=== PATIENT | male | born 1950 | race Caucasian/White ===

== ENCOUNTER → 2018-05-28 | Day surgery (SDC) | payer OTHER ==
[~2018-05-28] VITALS: Ht 162.5 cm; Wt 87.1 kg
[~2018-05-28] MED LIST: ADVAIR 250/501 EA INH; ADVAIR 250/501 EA PO; ALBUTEROL2.5 MG/0.5 INH; FENOFIBRATE145 M1 PO; FLUOXETINE40 MG PO; FOLIC ACID0.8 M1 PO; LEVAQUIN LEVA-750 MG PO; OXYGEN NAS; PRAVASTATIN SOD40 MG PO; SPIRIVA -- 3018 MCG INH; SPIRIVA18 MCG IH; VENTOLIN 02.5 MG/3 M INH
--- NOTE | ~2018-05-28 | O ---
[place], [place] OPERATIVE NOTE NAME: ALANA EVANS UNIT #: [id number] ROOM: DOCTOR: BENNETT CLEMENTE MD BIRTHDATE: [birth year] DOS: 05/28/2018 HISTORY OF PRESENT ILLNESS: A 67-year-old patient's blood on the stool. ALLERGIES: No known medication. FAMILY HISTORY: Noncontributory. PAST SURGICAL HISTORY: Lung biopsy, O2 dependency. PAST MEDICAL HISTORY: Hypertension, COPD, hyperlipidemia. SOCIAL HISTORY: Nonsmoker any longer. Nonalcohol consumer. PROCEDURE: Today's procedure part of investigation is colonoscopy and panendoscopy. PREMEDICATION: Propofol. SCOPE: Olympus forward-viewing gastroscope Q10 video. REPORT: After putting the patient in left lateral position and application of lubricant to the scope, the scope was introduced; thereafter on direct visualization, advanced through the length of esophagus without difficulty. Gastric pouch was entered. Gastritis was noticed. Antral biopsy was obtained. Duodenal bulb, second and third part within normal limits. The patient extubated and tolerated the procedure well. IMPRESSION: Gastritis. PLAN AND DISCUSSION: We are going to proceed with colonoscopic evaluation. Thank you very much again. GASTROENDOSCOPIC REPORT The patient has presented with blood on the stool undergoing investigation. PROCEDURE: Today's procedure part of investigation is colonoscopy plus biopsy and polypectomies. PREMEDICATION: Propofol. SCOPE: Olympus forward-viewing colonoscope 10L video. REPORT: After putting the patient in left lateral position and application of lubricant to the scope, the scope was introduced. Thereafter, under direct visualization, advanced through the length of colon without difficulty. Base of the cecum explored. Sessile polypoid lesion with a snare was polypectomized. Another polypoid lesion, which was sessile. Biopsy was polypectomized removed. [place], [place] OPERATIVE NOTE NAME: ALANA EVANS UNIT #: [id number] ROOM: DOCTOR: BENNETT CLEMENTE MD BIRTHDATE: [birth year] Two other polypoid lesions sessile with piecemeal polypectomy from hepatic flexure, ascending area was removed. The patient extubated, tolerated procedure well. Diverticulosis as well noticed scatteredly. PLAN AND DISCUSSION: The patient is guaiac positive mostly from superficial mucosal tear. Otherwise, no active pathology identified except for polyps and diverticulosis. Recommending follow up on H and H. If there is any drop, we have to reassess. Thank you very much indeed. BENNETT CLEMENTE MD CM:OPRECORD:OPERATIVE NOTE [id number] BENNETT CLEMENTE MD 05/28/18 1704 interface
[2018-05-28 12:40] VITALS: BP 114/66
[2018-05-28 14:29] VITALS: BP 103/48
[2018-05-28 14:44] VITALS: BP 98/40
[2018-05-28 14:59] VITALS: BP 102/71
== END | disposition home or self-care (01) ==
LOC: SDC 05-26 10:15
DX: D12.0 Benign neoplasm of cecum (principal); D12.2 Benign neoplasm of ascending colon; K57.30 Diverticulosis of large intestine without perforation or abscess without bleeding; K29.50 Unspecified chronic gastritis without bleeding; I10 Essential (primary) hypertension; E78.5 Hyperlipidemia, unspecified; J44.9 Chronic obstructive pulmonary disease, unspecified; Z87.891 Personal history of nicotine dependence; Z72.89 Other problems related to lifestyle; Z79.899 Other long term (current) drug therapy

== ENCOUNTER 2019-03-03 11:50 | Emergency (ER) | payer OTHER ==
[~2019-03-03] VITALS: Wt 70.8 kg
--- NOTE | ~2019-03-03 | EKG ---
[place], [place] ELECTROCARDIOGRAM REPORT NAME: ALANA EVANS UNIT #: [id number] ROOM: DOCTOR: EPIPHANY DRAFT REPORT BIRTHDATE: [birth year] [facility] Test Date: 2019-03-03 Test Time: 13:17:30 Pat Name: ALANA EVANS Department: Room: Gender: Javascript Web Developer: : 1950 Requested By: DALE CERNA DNP Order Number: [id number] Reading MD: Carlo Delacruz MD Measurements Intervals [place] Rate: 86 P: 70 AK: 160 QRS: 60 QRSD: 100 T: 43 QT: 369 QTc: 442 Interpretive Statements Sinus rhythm Electronically Signed On 03-06-2019 7:43:21 PDT by Carlo Delacruz MD CM:EKGRPT:ELECTROCARDIOGRAM REPORT [id number] DALE CERNA DNP [facility] DRAFT REPORT DALE CERNA DNP
[2019-03-03] MEDS ORDERED: WIXELA 250-501 EACH INH (12:38)
[2019-03-03 13:17] LABS: BASO % 0.3 % (0.0-1.0); EOS # 0.1 10*3/uL (0.0-0.4); EOS % 2.1 % (1.0-4.0); HEMATOCRIT 38.2 % (42.0-52.0); HEMOGLOBIN 12.3 g/dl (14.0-18.0); LYMPH # 0.7 10*3/uL (1.3-4.4); LYMPH % 11.9 % (27.0-41.0); MEAN CELL VOLUME 87.6 fl (80.0-94.0); MEAN CORPUSCULAR HGB 28.2 pg (27.0-31.0); MEAN CORPUSCULAR HGB CONC 32.2 g/dl (33.0-37.0); MEAN PLATELET VOLUME 9.1 fl (9.6-12.3); MONO # 0.5 10*3/uL (0.1-1.0); MONO % 8.2 % (3.0-9.0); NEUT # 4.7 10*3/uL (2.3-7.9); NEUT % 77.2 % (47.0-73.0); PLATELET COUNT AUTOMATED 238 10*3/uL (130-400); RED BLOOD COUNT 4.36 10*6/uL (4.50-5.90); WHITE BLOOD COUNT 6.1 10*3/uL (4.8-10.8)
[2019-03-03 13:32] LABS: ACT PARTIAL THROMBO TIME 29.6 SECONDS (20.0-32.1); INTERNATIONAL NORM RATIO 0.9 (2.0-3.5)
[2019-03-03 13:34] LABS: ALBUMIN 3.5 gm/dl (3.1-4.5); ALKALINE PHOSPHATASE 76 U/L (45-117); BUN 11 mg/dl (7-24); CHLORIDE 102 mmol/L (98-107); CREATININE 0.68 mg/dL (0.70-1.30); LIPASE 50 U/L (73-393); POTASSIUM 3.7 mmol/L (3.5-5.1); SGOT/AST 23 IU/L (3-35); SGPT/ALT 16 U/L (12-78); SODIUM 136 mmol/L (136-145); TOTAL PROTEIN 7.9 gm/dL (6.4-8.2)
[2019-03-03 13:41] LABS: ETHYL ALCOHOL < 3.0 mg/dl (<3); TROPONIN I < 0.015 ng/ml (<0.045)
[2019-03-03 15:15] LABS: BILIRUBIN 1+ (NEGATIVE); BLOOD NEGATIVE (NEGATIVE); CLARITY CLEAR (CLEAR); COLOR YELLOW (YELLOW); GLUCOSE NEGATIVE (NEGATIVE); KETONE NEGATIVE (NEGATIVE); LEUKO ESTERASE NEGATIVE (NEGATIVE); NITRITE NEGATIVE (NEGATIVE); UROBILINOGEN 0.2 E.U./dl (0.2-1.0)
[2019-03-03 15:26] LABS: EPITHELIAL CELLS 0-2; MUCOUS 2+
[2019-03-03 15:28] LABS: URINE BENZODIAZEPINES < 200 (200ng/ml); URINE CANNABINOIDS (THC) < 50 (50ng/ml); URINE COCAINE < 300 (300ng/ml); URINE METHADONE < 300 (300ng/ml); URINE OPIATES < 300 (300ng/ml)
[2019-03-03 15:32] LABS: URINE AMPHETAMINES < 1000 (1000ng/ml); URINE BARBITURATES < 200 (200ng/ml); URINE PHENCYCLIDINE < 25 (25ng/ml)
[2019-03-03 15:56] LABS: ACETAMINOPHEN (TYLENOL) < 10.0 ug/ml (10-30)
== END 2019-03-03 17:00 | disposition short-term general hospital (02) ==
LOC: ED 11:50
PROVIDERS: Nurse Practitioner Family
DX: G93.89 Other specified disorders of brain (principal); R41.82 Altered mental status, unspecified; R19.7 Diarrhea, unspecified; H53.8 Other visual disturbances; J44.9 Chronic obstructive pulmonary disease, unspecified; Z79.899 Other long term (current) drug therapy

== ENCOUNTER → 2019-04-18 | Outpatient (CLI) | payer OTHER ==
[~2019-04-18] MED LIST changes: +D3-20002000 UNIT PO; +LORATADINE10 M3 PO; +MULTIVITAMINS1 EAC5 PO; +VALTREX1000 MG PO; +WIXELA 250-501 EACH INH
[2019-04-18 12:01] LABS: HEMOGLOBIN 9.6 g/dl (14.0-18.0); MEAN CORPUSCULAR HGB 28.2 pg (27.0-31.0); MEAN PLATELET VOLUME 8.7 fl (9.6-12.3); NUCLEATED RED BLOOD CELL 0.5 % (0.0-0.0); PLATELET COUNT AUTOMATED 101 10*3/uL (130-400); RED BLOOD COUNT 3.41 10*6/uL (4.50-5.90); RED CELL DISTRI WIDTH 14.2 % (0-14.5); WHITE BLOOD COUNT 4.3 10*3/uL (4.8-10.8)
[2019-04-18 12:22] LABS: ALBUMIN 2.2 gm/dl (3.1-4.5); ALKALINE PHOSPHATASE 71 U/L (45-117); BUN 9 mg/dl (7-24); CHLORIDE 103 mmol/L (98-107); CREATININE 0.82 mg/dL (0.70-1.30); POTASSIUM 3.9 mmol/L (3.5-5.1); SGOT/AST 30 IU/L (3-35); SGPT/ALT 30 U/L (12-78); SODIUM 137 mmol/L (136-145)
[2019-04-18 14:01] LABS: TOTAL CELLS COUNTED 100 #CELLS
[2019-04-18 14:05] LABS: BLASTS 2 % (0-0)
[2019-04-18 14:06] LABS: PLATELET SUFFICIENCY LOW (NORMAL)
[2019-04-19 07:28] LABS: TOXIC GRANULATION MODERATE
== END | disposition home or self-care (01) ==
LOC: LAB 11:36
PROVIDERS: Internal Medicine Hematology & Oncology
DX: C34.00 Malignant neoplasm of unspecified main bronchus (principal); C79.31 Secondary malignant neoplasm of brain; C79.51 Secondary malignant neoplasm of bone

== ENCOUNTER 2019-05-05 21:30 | Inpatient (IN) | payer OTHER ==
[~2019-05-05] VITALS: Ht 165.1 cm; Wt 69.9 kg
[~2019-05-05 21:30] MED LIST changes: -D3-20002000 UNIT PO; -LORATADINE10 M3 PO; -MULTIVITAMINS1 EAC5 PO; -VALTREX1000 MG PO
[2019-05-05 21:33] VITALS: BP 107/62
--- NOTE | 2019-05-05 22:00 | NUR ---
PATIENT IS RESITNG IN BED. NO CONCERNS AT THIS TIME. PATIENTS MEDIPORT ACCESSED. PATIENT TOLERATED WELL.
[2019-05-05 22:29] LABS: BASO % 0.6 % (0.0-1.0); EOS % 0.1 % (1.0-4.0); HEMATOCRIT 26.7 % (42.0-52.0); HEMOGLOBIN 8.7 g/dl (14.0-18.0); LYMPH # 0.8 10*3/uL (1.3-4.4); LYMPH % 11.1 % (27.0-41.0); MEAN CELL VOLUME 85.6 fl (80.0-94.0); MEAN CORPUSCULAR HGB 27.9 pg (27.0-31.0); MEAN CORPUSCULAR HGB CONC 32.6 g/dl (33.0-37.0); MEAN PLATELET VOLUME 9.1 fl (9.6-12.3); MONO # 0.4 10*3/uL (0.1-1.0); MONO % 5.3 % (3.0-9.0); NEUT # 5.9 10*3/uL (2.3-7.9); NEUT % 81.9 % (47.0-73.0); PLATELET COUNT AUTOMATED 101 10*3/uL (130-400); RED BLOOD COUNT 3.12 10*6/uL (4.50-5.90); RED CELL DISTRI WIDTH 15.3 % (0-14.5); WHITE BLOOD COUNT 7.2 10*3/uL (4.8-10.8)
[2019-05-05 22:30] VITALS: BP 110/68
[2019-05-05 22:40] LABS: ALBUMIN 2.6 gm/dl (3.1-4.5); ALKALINE PHOSPHATASE 93 U/L (45-117); BUN 19 mg/dl (7-24); CHLORIDE 94 mmol/L (98-107); SGOT/AST 23 IU/L (3-35); SGPT/ALT 19 U/L (12-78); SODIUM 128 mmol/L (136-145); TOTAL PROTEIN 7.1 gm/dL (6.4-8.2)
--- NOTE | 2019-05-05 23:20 | NUR ---
PATIENT STATES PAIN IS MUCH BETTER AFTER RECEIVING PAIN MEDICATION. PATIENT RESTING AT THIS TIME.
[2019-05-06 00:30] VITALS: BP 118/54
--- NOTE | 2019-05-06 01:46 | NUR ---
NO OPEN SORES OR SPOTS FROM SHINGLES. SHINGLES AT THIS TIME ARE DRY AND NO DRAINAGE NOTED.
--- NOTE | 2019-05-06 02:30 | NUR ---
PT ARRIVED TO UNIT VIA STRETCHER BY ED RN. PT WAS PLACED IN AIRBORNE ISOLATION D/T SHINGLES. PT REFUSED VITALS, ASSESSMENT, AND REFUSED TO ANSWER ALMOST ALL MY QUESTIONS. WHEN ASKED IF THE PATIENT HAD FALLEN AT HOME, HE STATED "LOTS". BED ALARM WAS PLACED ON THE BED. CALL LIGHT WAS PLACED ON PATIENTS LAP. ASKED THE PATIENT IF HE NEEDED ANYTHING AND THE PATIENT DID NOT ANSWER.
--- NOTE | 2019-05-06 03:21 | NUR ---
CALLED DR. MOTT FOR ADMISSION ORDERS. SEE NEW ORDERS.
--- NOTE | 2019-05-06 04:40 | NUR ---
PT SET OFF BED ALARM, ENTERED ROOM AND FOUND PT SITTING ON THE SIDE OF THE BED. ASKED PT IF IT WAS OKAY IF WE GOT HIS VITALS NOW AND IF I COULD TAKE A LISTEN. PT STATED "NO, I DON'T NEED THAT STUFF DONE". WILL CONTINUE TO ATTEMPT TO LISTEN TO PATIENT AND OBTAIN A SET OF VITALS.
--- NOTE | 2019-05-06 05:13 | NUR ---
CRISTINAALANA Naif [id number] Please refer to the physician's history and physical for past medical history, comorbid conditions, and allergies. Diagnosis: RINTRACTABLE PAIN DISSEMINATED HERPES ZOSTER Arturo Score: 15,AT RISK WOUND DESCRIPTIONS: Patient has rash over entire body. Dark red, brown, purple and yellow in color. Most distinct noted right below breast to right mid back is dark in color. Patient complaining of pain to areas. Patient will not answer any questions at this time regarding when this started or where it started. It is located on bilateral feet, legs, periarea, buttocks, arm, head, face, and back, bilateral wrists. Surface the patient is resting on: Isoflex SKIN PREVENTION RECOMMENDATION: 1. Pressure redistribution support surface as appropriate 2. Elevate heels 3. Remove boots/TEDS every shift and reapply 4. Head of bed 30 degrees as tolerated 5. Assess nutrition and hydration 6. Manage moisture 7. Avoid the use of containment devices while in bed 8. Use absorptive products on surfaces limit layers of linens on bed 9. Turn and reposition every 1-2 hours in bed and every 1 hour in chair as tolerated 10. Weight shifts every 15 minutes while up in chair 11. Offloading with pillows or device to keep heels elevated off bed 12. Monitor skin at least every shift 13. Inspect under medical devices twice a day WOUND TREATMENT RECOMMENDATIONS: ID is already on consult await recommendations.
--- NOTE | 2019-05-06 06:45 | NUR ---
CONSULT FOR INFECTIOUS DISEASE WAS COMPLETED TO DR. HOPPER.
--- NOTE | 2019-05-06 06:55 | NUR ---
CALLED HAILEY, PT'S TO GO OVER HOME MEDICATIONS. PT'S SAID THAT SHE IS GOING TO GO OVER THEM WITH US WHEN SHE GETS HERE.
[2019-05-06 08:00] VITALS: BP 108/60
[2019-05-06] MEDS ORDERED: LORATADINE10 M3 PO (08:17)
[2019-05-06] MEDS ORDERED: D3-20002000 UNIT PO (08:18)
[2019-05-06] MEDS ORDERED: MULTIVITAMINS1 EAC5 PO (08:21)
--- NOTE | 2019-05-06 09:00 | NUR ---
Loss Prevention Coordinator in to talk to patient. Patient states lives at home alone with his checking in on him. There are 5 steps in the home. Physician: Dr. Montrell Bob Pharmacy: [facility] Home health services: none Patient's level of ADLs: MINIMAL ASSIST Patient has working utilities: yes DME: cane, O2 @ 3L nc at rest and 3.5L on exertion, nebulizer, O2 supplier BMS Follow-up physician's appointment after d/c: he prefers to make his own follow up appt after discharge Does patient want to access PORTAL?: no Discharge plan discussed with patient. He lives at home alone with his checking in on him. They live separately. She lives about 5 blocks away from him. He does have a sister and brother that check in on him also. He is independent in his ADLs and ambulates with a cane. Discussed home health care services and he denies any home needs at this time. Requested and given HPOA and living will paperwork for the state of [place]. Instructed she can have 2 non-family members witness the paperwork or have a notary, she verbalized an understanding. When medically stable he will be discharged to home. will provide transportation on discharge. BROCK CADET
[2019-05-06 12:00] VITALS: BP 122/69
[2019-05-06 16:00] VITALS: BP 99/58
[2019-05-06 20:00] VITALS: BP 110/64
[2019-05-07] VITALS: BP 117/70
--- NOTE | 2019-05-07 01:53 | NUR ---
PATIENT MEDICATED WITH MORPHINE 2 MG IV PER PRN ORDER. PATIENT STATED HE WAS UNABLE TO GET COMFORTABLE. SEE EMAR. REINFORCED USE OF CALL LIGHT
--- NOTE | 2019-05-07 02:15 | NUR ---
24 HR chart check completed.
[2019-05-07 06:49] LABS: HEMATOCRIT 22.3 % (42.0-52.0); HEMOGLOBIN 7.2 g/dl (14.0-18.0); MEAN CELL VOLUME 84.5 fl (80.0-94.0); MEAN CORPUSCULAR HGB 27.3 pg (27.0-31.0); MEAN CORPUSCULAR HGB CONC 32.3 g/dl (33.0-37.0); MEAN PLATELET VOLUME 9.6 fl (9.6-12.3); PLATELET COUNT AUTOMATED 73 10*3/uL (130-400); RED BLOOD COUNT 2.64 10*6/uL (4.50-5.90); RED CELL DISTRI WIDTH 15.8 % (0-14.5); WHITE BLOOD COUNT 4.6 10*3/uL (4.8-10.8)
[2019-05-07 07:10] LABS: BUN 11 mg/dl (7-24); CHLORIDE 100 mmol/L (98-107); CREATININE 0.49 mg/dL (0.70-1.30); POTASSIUM 3.4 mmol/L (3.5-5.1); SODIUM 133 mmol/L (136-145)
[2019-05-07 08:00] VITALS: BP 92/66; BP 97/55
[2019-05-07 08:28] LABS: MICROCYTOSIS SLIGHT; PLATELET SUFFICIENCY LOW (NORMAL); POLYCHROMASIA SLIGHT; TOTAL CELLS COUNTED 100 #CELLS
[2019-05-07 08:36] LABS: TOXIC GRANULATION SLIGHT
--- NOTE | 2019-05-07 09:03 | NUR ---
Morphine given per patient request for c/o pain "all over." Patient rates pain 8/10. Will monitor.
--- NOTE | 2019-05-07 09:30 | NUR ---
Morphine effective. Patient asleep with respirations >12.
--- NOTE | 2019-05-07 10:28 | NUR ---
Notified Dr. Bob of morning lab results. No new orders physician to follow up at bedside.
[2019-05-07 12:00] VITALS: BP 104/62
[2019-05-07 13:05] LABS: BILIRUBIN NEGATIVE (NEGATIVE); BLOOD TRACE-INTACT (NEGATIVE); CLARITY CLEAR (CLEAR); COLOR YELLOW (YELLOW); GLUCOSE NEGATIVE (NEGATIVE); KETONE NEGATIVE (NEGATIVE); LEUKO ESTERASE NEGATIVE (NEGATIVE); NITRITE NEGATIVE (NEGATIVE); SPECIFIC GRAVITY 1.015 (1.005-1.030); UROBILINOGEN 0.2 E.U./dl (0.2-1.0)
[2019-05-07 13:17] LABS: BACTERIA 1+; MUCOUS 1+
[2019-05-07 16:00] VITALS: BP 97/53
[2019-05-07 20:00] VITALS: BP 98/56
[2019-05-08] VITALS: BP 100/59
--- NOTE | 2019-05-08 00:01 | NUR ---
Patient resting quietly with no c/o discomfort. Respirations easy and regular. Vital signs stable. No overt distress. CALL LIGHT WITHIN REACH. BED ALARM ON . BAKARI BOWEN
--- NOTE | 2019-05-08 02:58 | NUR ---
24 HR chart check completed.
--- NOTE | 2019-05-08 03:57 | NUR ---
Patient sleeping. Respirations relaxed and easy. Siderails up . [place] on. CALL LIGHT WITHIN REACH. BED ALARM ON HISS[place],BAKARI
[2019-05-08 08:00] VITALS: BP 113/69
--- NOTE | 2019-05-08 09:15 | NUR ---
Per patient request contacted Dr. Bob for Tylenol order. See new orders.
[2019-05-08 12:00] VITALS: BP 108/52
[2019-05-08 16:00] VITALS: BP 98/49
[2019-05-08 20:00] VITALS: BP 98/52
--- NOTE | 2019-05-08 23:53 | NUR ---
PATIENT REQUESTING PAIN MEDICATION FOR CHRONIC PAIN. TYLENOL ADMINISTERED PRESCRIBED. WILL MONITOR FOR EFFECTIVENESS.
[2019-05-09] VITALS: BP 92/50
--- NOTE | 2019-05-09 00:53 | NUR ---
PATIENT STATES THAT TYLENOL HELPED A LITTLE WITH HIS PAIN. WILL MONITOR.
[2019-05-09 07:24] LABS: BUN 10 mg/dl (7-24); CHLORIDE 104 mmol/L (98-107); POTASSIUM 3.4 mmol/L (3.5-5.1); SODIUM 137 mmol/L (136-145)
[2019-05-09 07:27] LABS: CREATININE 0.55 mg/dL (0.70-1.30)
[2019-05-09 08:00] VITALS: BP 101/50
--- NOTE | 2019-05-09 10:20 | NUR ---
Called Dr. Livingston because patient became extremely aggitated and non compliant. Nursing staff stayed with patient to help calm him and keep him safe. See new orders.
--- NOTE | 2019-05-09 10:30 | NUR ---
Notified Lucero Gonsalez to get permission for patient to leave his room to help ease aggitation. Per infection control patient can leave his room and ambulate for 5mins. A mask must be worn and skin to remain covered.
--- NOTE | 2019-05-09 10:30 | NUR ---
Retail Area Manager in to see patient. No new needs or request at this time. He denies any home needs. When medically stable he will be discharged to home. Per multidisciplinary discharge planning meeting his lesions are starting to crust over. ID is following, patient is on ganciclovir.
--- NOTE | 2019-05-09 10:40 | NUR ---
Called patients because he wanted to talk to her. Left a message.
--- NOTE | 2019-05-09 10:50 | NUR ---
Patient has calmed down and refused to go for a walk. Additional staff in to comfort and sit with patient.
--- NOTE | 2019-05-09 10:53 | NUR ---
Nutritional Support Services Note: Appetite is good for meals, regular diet as ordred. Herpes Zoster noted. He declines a supplement at this time. Encouraged pt to continue to eat well at home. Encouraged a nigt snack and adequate protein intake. Ht.5'5 Wt.154# Will follow if needed. No other Nutrition intervention needed at this time. Magalis Leslie Rdn Ld
[2019-05-09 12:00] VITALS: BP 94/55
--- NOTE | 2019-05-09 12:15 | NUR ---
Renetta, patients returned call. Updated her on patients current condition and also of events earlier this morning. She asked if she spoke with him now might "fire him up" again. I let her know that he is calm and happy at the moment and might be best to let him be. She stated she would be up later to visit him.
--- NOTE | 2019-05-09 13:30 | NUR ---
Notified Dr. Livingston that patient took off his body alarm and was caught by staff member walking down the manrique. See new orders.
--- NOTE | 2019-05-09 14:11 | NUR ---
Spoke with Dr. Livingston regarding ID wanting to keep patient on IV medications one more day due the quantity of lesions and patient being immunocompromised. See new orders.
--- NOTE | 2019-05-09 14:17 | NUR ---
Phone call made to Dr. Holt to clarify airborne isolation precuations. Per ID - patient is to remain in negative pressure room and may not leave the room unless transport is necessary for medical purposes. Airborne precautions are to be maintained as patient still has disseminated lesions. RN informed.
--- NOTE | 2019-05-09 15:17 | NUR ---
Notified Dr. Livingston of patients countinued aggitation and non compliance. Patient is confused, unsteady at risk for falls. See new orders.
[2019-05-09 16:00] VITALS: BP 103/63
--- NOTE | 2019-05-09 17:33 | NUR ---
Spoke with patients sister regarding his condition. Presently the patient is hallucinating. Family realizes he cannot be left unattended. Renetta, patients is on her way to hospital and both the brother and sister are going to talk to her about getting Hospice into assist with care.
--- NOTE | 2019-05-09 18:28 | NUR ---
PHYSICAL THERAPY Nursing screen received and chart reviewed. Please order PT evaluation when medially appropriate, if decline in functional status presents. Thank you. Susana Machuca,PT,DPT
[2019-05-09 20:00] VITALS: BP 113/61
[2019-05-10] VITALS: BP 98/60
--- NOTE | 2019-05-10 04:32 | NUR ---
Recommend follow up for wound care in outpatient setting patient refused at this time.
[2019-05-10 08:00] VITALS: BP 92/55
[2019-05-10] MEDS ORDERED: VALTREX1000 MG PO (08:54)
--- NOTE | 2019-05-10 10:43 | NUR ---
Spoke to at bedside regarding discharge planning. She states patient is discharged today and the doctor is saying patient needs 24 hour care at home. Discussed short term SNF and they refuse. Discussed home health care services and they are agreeable. When provided with a list of agencies they chose [facility]. Explained nurses and aides will not be there for more than an hour daily. She verbalized an understanding. Discussed private pay aides or nursing at home. She states they are not able to afford that. Discussed applying for Medicaid and they refuse. Patient doesn't want all of his belongings taken from him as their children live in his house. Information given to for [facility]. Faxed new [facility] referral.
--- NOTE | 2019-05-10 11:56 | NUR ---
Discharge instructions reviewed with patient/family. Patient receptive and verbalizes understanding. Follow-up care arranged. Written instructions given to patient/family. PATTI NULL
== END 2019-05-10 11:56 | disposition home health service (06) | DRG 180 ==
LOC: ED 21:30 → 5E 23:30 → EDHOLD 23:30 → 5E 05-06 01:38
PROVIDERS: Nurse Practitioner; Nurse Practitioner Family; ADMIT Internal Medicine
DX: C34.90 Malignant neoplasm of unspecified part of unspecified bronchus or lung (principal); G93.41 Metabolic encephalopathy; B02.7 Disseminated zoster; J96.10 Chronic respiratory failure, unspecified whether with hypoxia or hypercapnia; E44.0 Moderate protein-calorie malnutrition; C79.31 Secondary malignant neoplasm of brain; Z85.841 Personal history of malignant neoplasm of brain; F17.210 Nicotine dependence, cigarettes, uncomplicated; E66.9 Obesity, unspecified; Z51.5 Encounter for palliative care; E87.6 Hypokalemia; J44.9 Chronic obstructive pulmonary disease, unspecified; E78.1 Pure hyperglyceridemia; Z68.26 Body mass index [BMI] 26.0-26.9, adult

== ENCOUNTER 2019-05-14 14:36 | Inpatient (IN) | payer OTHER ==
[~2019-05-14] VITALS: Ht 180.3 cm; Wt 76.3 kg
--- NOTE | ~2019-05-14 | DS ---
[place], [place] DISCHARGE SUMMARY [id number] UNIT #: [id number] ROOM: 523 DOCTOR: PATRICK MOTT MD BIRTHDATE: [birth year] DOS: 05/18/2019 DIAGNOSES: 1. Disseminated herpes zoster with the superficial bacterial infection with gram-positive cocci, which turned out to be Staphylococcus aureus. 2. CA of the lung, small cell CA with metastasis. 3. Anemia of chronic disease, status post blood transfusion. HOSPITAL COURSE: The patient is 68 years old, comes in with complaints of swelling and irritation and drainage from the chest wall area. The patient was just admitted here recently for disseminated herpes zoster. After admission, the patient was sent home on Valtrex. She comes up. She was admitted. IV antibiotics were started. Ganciclovir continued. ID was consulted. The patient was found to be quite anemic, hematocrit was quite low and the patient was transfused with 2 units of packed red blood cells. Hemoglobin has come up and remained stable. Anemia workup so far confirms anemia of chronic disease. Blood cultures were done, which were negative. The patient is overall stable and improved. The lesions were pretty weepy with evidence of superficial bacterial infection. The cultures grew Staph aureus for which the patient was placed on antibiotics. This patient is stable, plan to discharge to home today on p.o. antibiotics, which is doxycycline 100 mg twice a day for 10 days as well as Valtrex 1000 t.i.d. for 10 days. PATRICK MOTT MD CM:DISCHARG 0854 PATRICK MOTT MD 05/18/19 0912 interface
--- NOTE | ~2019-05-14 | CON ---
[place], [place] REPORT OF CONSULTATION NAME: ALANA EVANS UNIT #: [id number] ROOM: 523 DOCTOR: RUFINO HOPPER MD BIRTHDATE: [birth year] DOS: 05/17/2019 CHIEF COMPLAINT: Disseminated lesions over the body. HISTORY OF PRESENT ILLNESS: The patient is feeling much better today. His lesions are drying up. No pain, no fever or chills. He is on IV ganciclovir and IV ceftriaxone. REVIEW OF SYSTEMS: A 12-point review of system has been done. Pertinent negative positive included in HPI, rest are noncontributory. PHYSICAL EXAMINATION: VITAL SIGNS: Stable. GENERAL: The patient is alert, oriented x 3, not in acute distress. HEENT: Atraumatic, normocephalic. PERRLA, EOMI. RESPIRATORY: Bilaterally equal. No wheeze or crackles. CARDIOVASCULAR: S1, S2 normal. No murmurs, rubs or gallops. SKIN: Numerous papular pustular lesions are now drying up and the lesion over the right thoracic area is also dry with crusting, not much of discharge at this time. TREATMENT PLAN: 1. Disseminated Zoster resolving. 2. MSSA bacterial infection on top of the zoster lesions, healing. 3. The patient can be discharged tomorrow on p.o. Valtrex for another 5 days and for his MSSA bacterial infection on top of the lesions, currently he is on ceftriaxone that can be changed to doxycycline 100 mg twice a day for another 10 days. The patient is okay for discharge from Infectious Disease standpoint. While he is in the hospital, continue airborne plus contact isolation. Thank you for your consult. Please call for any questions. Rufino Hopper MD CM:CONSTR:REPORT OF CONSULTATION 1124 05/17/19 1234 interface
--- NOTE | ~2019-05-14 | PR ---
[place], [place] PROGRESS NOTE [facility]: [facility]LA[facility]ANS [id number] UNIT #: [id number] ROOM: 523 DOCTOR: PATRICK MOTT MD BIRTHDATE: [birth year] DOS: 05/17/2019 SUBJECTIVE: The patient is about the same, does not have any new complaints. OBJECTIVE: VITAL SIGNS: Graphic trend shows a pressure of 100/60, pulse of 85, respirations 18, temperature 98.4. LUNGS: Clear. HEART: Regular. ABDOMEN: Soft. EXTREMITIES: Without any edema. LABORATORY DATA: Wound cultures shows Staphylococcus aureus. BMP: Glucose 105, BUN 5, creatinine 0.48, sodium 138, potassium 4.1, chloride 105. White cell count is 7.8, hemoglobin 7.7, hematocrit 24.9. ASSESSMENT AND PLAN: 1. Disseminated herpes zoster on IV ganciclovir. No new lesions noted with two large area of superficial infection from the skin denuding off. He is on IV antibiotics. 2. Gram-positive cocci growing on the skin infected area. Again, let ID change antibiotics if needed. The area looks quite dry. We will continue honey dressings. 3. Adult failure to thrive. I did suggest to the patient about placement to a short-term rehabilitation if he needs to continue IV antibiotics. 4. Lung cancer with mets. The patient has been on chemotherapy until about few months until about a month ago. 5. Anemia of chronic disease, no need for transfusion today. PATRICK MOTT MD CM:PNTRANS 8 PATRICK MOTT MD 05/17/19910 interface
--- NOTE | ~2019-05-14 | WRIGHTHP ---
[place], [place] PATIENT HISTORY AND PHYSICAL EXAM NAME: ALANA EVANS [facility] #: [id number] UNIT #: [id number] ROOM: 523 DOCTOR: PATRICK MOTT MD BIRTHDATE: [birth year] DOS: 05/15/2019 HISTORY OF PRESENT ILLNESS: This patient is 68 years old. The patient is known to me from a previous admission when he was here with disseminated herpes zoster. He was discharged home on Valtrex. He comes back into the hospital with a large area of denudation of the skin on the chest wall and the area is quite sore and has been leaking. He denied having any chest pains, palpitations, does not have any fever or chills, does not have any abdominal pain, nausea, any emesis. 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 He can get agitated. PAST MEDICAL HISTORY: Significant for: 1. Recent hospitalization for disseminated herpes zoster. 2. 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 3. 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 He follows up with hematology/oncology in [place]. SOCIAL HISTORY: He lives at home with his . PHYSICAL EXAMINATION: GENERAL: He is awake and alert, oriented to person. VITAL SIGNS: Graphic trend shows a pressure of 92/65, pulse of 96, respirations 22, temperature 98.2 with a T-max of 100.9. LUNGS: Diminished breath sounds. HEART: Regular. ABDOMEN: Obese, soft. SKIN: His herpetic lesions have dried up, a large area on the right chest wall where the skin has denuded off the area looks quite red with purulent drainage. LABORATORY DATA: Lactic acid is normal at 1.7. Comprehensive glucose 118, BUN 10 and creatinine 0.73, sodium 135, potassium 3.5, chloride 101, bicarbonate 28. WBC count is 4.6, hemoglobin 7.2, hematocrit 22.3. ASSESSMENT AND PLAN: 1. Infection of the skin in a patient with previous history of herpes zoster, a local treatment has been ordered. We will start him on IV vancomycin, ID consultation has been obtained. 2. Brain mets with metabolic encephalopathy, stable at his baseline. 3. Anemia with precipitous drop in hematocrit, hemoglobin is 6.4. Ferritin is pending. Iron is low, may need iron supplementation and blood transfusion has been ordered. The patient has no active bleeding. [place], [place] PATIENT HISTORY AND PHYSICAL EXAM NAME: ALANA EVANS UNIT #: [id number] ROOM: 523 DOCTOR: PATRICK MOTT MD BIRTHDATE: [birth year] PATRICK MOTT MD CM:HISPHYS:PATIENT HISTORY AND PHYSICAL EXAMINATION PATRICK MOTT MD 05/15/19 0851 interface
--- NOTE | ~2019-05-14 | PR ---
[place], [place] PROGRESS NOTE NAME[id number] UNIT #: [id number] ROOM: 523 DOCTOR: PATRICK MOTT MD BIRTHDATE: [birth year] DOS: 05/16/2019 SUBJECTIVE: The patient is about the same, does not have any new complaints. His mind is quite clear this morning. OBJECTIVE: VITAL SIGNS: Graphic trend shows a pressure of 120/58, pulse of 90, respirations 20, temperature 97.9 from 05/16/2019. LUNGS: Clear. HEART: Regular. ABDOMEN: Obese, soft. EXTREMITIES: Without any edema, rash is about the same, the chest wall area looks much dry this morning, is not much of drainage today. LABORATORY DATA: Blood culture shows no bacterial growth. Wound culture, gram-positive cocci, no identification yet. ASSESSMENT AND PLAN: 1. Infection of the chest wall skin with Gram-positive cocci, identification is pending. Change antibiotics depending on the identification. 2. Herpes zoster disseminated, back on ganciclovir IV. 3. 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 The patient is on chemotherapy. 4. Precipitous drop in hematocrit and transfuse him, he seems to be deficient in iron, but ferritin is normal, so this most likely is anemia of chronic disease. We will transfuse again if needed. We will repeat labs in the morning. PATRICK MOTT MD CM:PNTRANS 4 9 PATRICK MOTT MD 05/16/19 09 interface
--- NOTE | ~2019-05-14 | PR ---
[place], [place] PROGRESS NOTE NAME: [facility]LANA [facility]ANS [facility] [id number] UNIT #: [id number] ROOM: 523 DOCTOR: PATRICK MOTT MD BIRTHDATE: [birth year] DOS: 05/18/2019 SUBJECTIVE: The patient is doing well, does not have any new complaints. OBJECTIVE: VITAL SIGNS: Blood pressure is 106/62, pulse of 94, respirations 16, temperature 97.8. LUNGS: Clear. HEART: Regular. ABDOMEN: Obese, soft. EXTREMITIES: Without any edema. Lesions on his chest and abdomen much dried. There is no discharge on any of these areas. LABORATORY DATA: Hemoglobin was 7.7. ASSESSMENT AND PLAN: 1. CA lung, small cell CA with metastasis, on chemotherapy. 2. Disseminated herpes zoster with a superficial bacterial infection of the chest wall area with Staph aureus growth on IV antibiotics, so ID recommendation is to switch to p.o. and discharge. PATRICK MOTT MD CM:PNTRANS 0846 PATRICK MOTT MD 05/18/19 0914 interface
[~2019-05-14 14:36] MED LIST changes: +D3-20002000 UNIT PO; +LORATADINE10 M3 PO; +MULTIVITAMINS1 EAC5 PO; +VALTREX1000 MG PO
[2019-05-14 14:39] VITALS: BP 95/60
[2019-05-14 15:23] LABS: HEMATOCRIT 23.7 % (42.0-52.0); HEMOGLOBIN 7.4 g/dl (14.0-18.0); MEAN CELL VOLUME 90.5 fl (80.0-94.0); MEAN CORPUSCULAR HGB 28.2 pg (27.0-31.0); MEAN CORPUSCULAR HGB CONC 31.2 g/dl (33.0-37.0); MEAN PLATELET VOLUME 8.6 fl (9.6-12.3); NUCLEATED RED BLOOD CELL 0.1 % (0.0-0.0); PLATELET COUNT AUTOMATED 190 10*3/uL (130-400); RED BLOOD COUNT 2.62 10*6/uL (4.50-5.90); WHITE BLOOD COUNT 13.5 10*3/uL (4.8-10.8)
[2019-05-14 15:38] LABS: ALBUMIN 2.4 gm/dl (3.1-4.5); ALKALINE PHOSPHATASE 78 U/L (45-117); BUN 10 mg/dl (7-24); CHLORIDE 101 mmol/L (98-107); CREATININE 0.73 mg/dL (0.70-1.30); POTASSIUM 3.5 mmol/L (3.5-5.1); SGOT/AST 17 IU/L (3-35); SGPT/ALT 15 U/L (12-78); SODIUM 135 mmol/L (136-145); TOTAL PROTEIN 7.5 gm/dL (6.4-8.2)
[2019-05-14 15:48] LABS: TOTAL CELLS COUNTED 100 #CELLS
[2019-05-14 15:50] LABS: PLATELET SUFFICIENCY NORMAL (NORMAL); POLYCHROMASIA SLIGHT
[2019-05-14 15:51] LABS: TOXIC GRANULATION SLIGHT
[2019-05-14 17:46] VITALS: BP 95/54
[2019-05-14 20:00] VITALS: BP 101/64
[2019-05-15] VITALS (15 sets, daily range): BP systolic 80–102; BP diastolic 42–65
[2019-05-15 06:17] LABS: MEAN CELL VOLUME 90.8 fl (80.0-94.0); MEAN CORPUSCULAR HGB 27.9 pg (27.0-31.0); MEAN CORPUSCULAR HGB CONC 30.8 g/dl (33.0-37.0); MEAN PLATELET VOLUME 8.6 fl (9.6-12.3); PLATELET COUNT AUTOMATED 175 10*3/uL (130-400); RED BLOOD COUNT 2.29 10*6/uL (4.50-5.90); WHITE BLOOD COUNT 9.4 10*3/uL (4.8-10.8)
[2019-05-15 06:22] LABS: HEMATOCRIT 20.8 % (42.0-52.0); HEMOGLOBIN 6.4 g/dl (14.0-18.0)
[2019-05-15 06:26] LABS: BUN 6 mg/dl (7-24); CHLORIDE 105 mmol/L (98-107); CREATININE 0.53 mg/dL (0.70-1.30); POTASSIUM 3.8 mmol/L (3.5-5.1); SODIUM 139 mmol/L (136-145)
[2019-05-15 07:11] LABS: IRON 25 ug/dL (65-175); TOTAL IRON BINDING CAPACITY 168 ug/dl (250-450)
[2019-05-15 07:24] LABS: OVALOCYTES FEW; PLATELET SUFFICIENCY NORMAL (NORMAL); POLYCHROMASIA SLIGHT; ROULEAUX SLIGHT; TOTAL CELLS COUNTED 100 #CELLS; TOXIC GRANULATION MODERATE
[2019-05-15 07:25] LABS: SPHEROCYTES FEW; STOMATOCYTE FEW
[2019-05-16] VITALS: BP 87/42
[2019-05-16 06:39] LABS: HEMATOCRIT 22.6 % (42.0-52.0); HEMOGLOBIN 7.1 g/dl (14.0-18.0)
[2019-05-16 08:36] VITALS: BP 120/58
[2019-05-16 16:00] VITALS: BP 98/61
[2019-05-16 20:00] VITALS: BP 91/47
[2019-05-17] VITALS: BP 91/50
[2019-05-17 06:50] LABS: BASO % 0.3 % (0.0-1.0); EOS % 0.1 % (1.0-4.0); HEMATOCRIT 24.9 % (42.0-52.0); HEMOGLOBIN 7.7 g/dl (14.0-18.0); LYMPH # 0.8 10*3/uL (1.3-4.4); LYMPH % 10.4 % (27.0-41.0); MEAN CELL VOLUME 91.5 fl (80.0-94.0); MEAN CORPUSCULAR HGB 28.3 pg (27.0-31.0); MEAN CORPUSCULAR HGB CONC 30.9 g/dl (33.0-37.0); MEAN PLATELET VOLUME 8.9 fl (9.6-12.3); MONO # 0.5 10*3/uL (0.1-1.0); MONO % 5.9 % (3.0-9.0); NEUT # 6.3 10*3/uL (2.3-7.9); NEUT % 80.7 % (47.0-73.0); PLATELET COUNT AUTOMATED 232 10*3/uL (130-400); RED BLOOD COUNT 2.72 10*6/uL (4.50-5.90); RED CELL DISTRI WIDTH 17.1 % (0-14.5); WHITE BLOOD COUNT 7.8 10*3/uL (4.8-10.8)
[2019-05-17 07:13] LABS: BUN 5 mg/dl (7-24); CHLORIDE 105 mmol/L (98-107); CREATININE 0.48 mg/dL (0.70-1.30); POTASSIUM 4.1 mmol/L (3.5-5.1); SODIUM 138 mmol/L (136-145)
[2019-05-17 08:00] VITALS: BP 100/60
[2019-05-17 12:00] VITALS: BP 102/66
[2019-05-17 14:00] VITALS: BP 102/66
[2019-05-17 16:00] VITALS: BP 111/60
[2019-05-17 20:00] VITALS: BP 101/50
[2019-05-18] VITALS: BP 119/53
[2019-05-18 08:00] VITALS: BP 106/62
[2019-05-18] MEDS ORDERED: DOXYCYCLINE100 M3 PO (08:48)
[2019-05-18] MEDS ORDERED: VALTREX1000 MG PO (08:49)
[2019-05-18 12:00] VITALS: BP 102/58
[2019-05-18 16:00] VITALS: BP 110/50
== END 2019-05-18 16:45 | disposition home health service (06) | DRG 865 ==
LOC: ED 14:36 → EDHOLD 17:52 → 5E 17:52
PROVIDERS: Physician Assistant; ADMIT Internal Medicine
DX: B02.7 Disseminated zoster (principal); G93.41 Metabolic encephalopathy; C79.31 Secondary malignant neoplasm of brain; C34.90 Malignant neoplasm of unspecified part of unspecified bronchus or lung; C79.00 Secondary malignant neoplasm of unspecified kidney and renal pelvis; C79.51 Secondary malignant neoplasm of bone; C79.70 Secondary malignant neoplasm of unspecified adrenal gland; A49.01 Methicillin susceptible Staphylococcus aureus infection, unspecified site; R62.7 Adult failure to thrive; D63.8 Anemia in other chronic diseases classified elsewhere; Z92.21 Personal history of antineoplastic chemotherapy; Z92.3 Personal history of irradiation; Z87.01 Personal history of pneumonia (recurrent); Z79.899 Other long term (current) drug therapy; Z68.23 Body mass index [BMI] 23.0-23.9, adult